=== PATIENT | female | born 1985 | race African-American/Black ===

== ENCOUNTER 2017-09-10 12:55 | Emergency (ER) | payer OTHER ==
[~2017-09-10] VITALS: Ht 167.6 cm; Wt 67.0 kg
[2017-09-10 14:02] VITALS: BP 119/68
[2017-09-10] MEDS: KETOROLAC 60MG/2ML VIAL IM ONE ×2 (14:02→14:30)
== END 2017-09-10 16:02 | disposition home or self-care (01) ==
LOC: ER 14:32
DX: M25.572 Pain in left ankle and joints of left foot (principal)
CPT/HCPCS: 73610; 81025; 99284